=== PATIENT | female | born 1985 ===

== ENCOUNTER 2023-09-20 13:38 | Outpatient (CLI) | payer OTHER, SELFPAY | END 2023-09-20 13:39 | disposition home or self-care (01) | LOC: FRMREF 13:40 | PROVIDERS: Visit Provider Registered Nurse | DX: N92.0 Excessive and frequent menstruation with regular cycle (principal); Z13.29 Encounter for screening for other suspected endocrine disorder | CPT/HCPCS: 84443 ==

== ENCOUNTER 2023-10-02 08:30 | Outpatient (CLI) | payer OTHER, SELFPAY ==
--- NOTE | 2023-10-02 08:45 | US_ITS ---
Patient: JOSE D JACOBSON Facility:?[facility] Patient ID:?[id number] Site Patient ID:?[id number]. Site :?[id number] Study:?US-Pelvis PELVIS TA & TV-10/02/2023 9:42:59 AM Ordering Physician:?FRIEDA ESPINOZA CNP Final Report: INDICATION: Excessive and frequent menstruation COMPARISON: none TECHNIQUE: 2D lake scale and color Doppler images were acquired of the pelvis using a transabdominal and transvaginal approach. FINDINGS: Sonographic images demonstrate a normal size and smooth outer contour of the uterus. Uterus measures 9.5 cm in length by 5.3 cm in AP diameter by 6.5 cm in transverse dimension. The myometrium has a normal uniform echotexture. The endometrial lining measures 18 mm in composite thickness. The right ovary measures 3.4 x 2.0 x 2.0 cm in size and the left ovary measures 3.5 x 2.0 x 2.6 cm. The ovaries demonstrate normal arterial and venous blood flow on color Doppler analysis. There are no suspicious fluid collections within the cul-de-sac. Small collapsing cyst left ovary measuring 18 x 11 x 14 millimeters. IMPRESSION: Endometrial thickness 18 millimeters. No endometrial fluid or uterine fibroid. Dictated by Dk Hanson MD @ 10/02/2023 10:16:00 AM Signed by:?Dk Hanson MD @10/02/2023 10:16:00 AM (Electronic Signature)
== END 2023-10-02 08:31 | disposition home or self-care (01) ==
LOC: US 08:30
PROVIDERS: Visit Provider Registered Nurse
DX: N92.0 Excessive and frequent menstruation with regular cycle (principal); R93.89 Abnormal findings on diagnostic imaging of other specified body structures
CPT/HCPCS: 76830; 76856